=== PATIENT | male | born 1995 | race Caucasian/White ===

== ENCOUNTER 2017-12-11 18:56 | Emergency (ER) | payer BC, OTHER ==
--- NOTE | 2017-12-11 19:09 | EDM.PDOC ---
ED HPI GENERAL MEDICAL PROBLEM - General Stated Complaint: PT HAS FEVER Time Seen by Provider: 12/11/17 19:07 Source of Information: Reports: Patient History Limitations: Reports: No Limitations - History of Present Illness INITIAL COMMENTS - FREE TEXT/NARRATIVE: HISTORY AND PHYSICAL: []22-year-old male presents per EMS from [facility] History of Present Illness: []Patient was in the hospital for 2 days fever and leg pain. When Tylenol was stopped this morning he continued to have a fever 104 Review of Systems: As per history of present illness and below otherwise all systems reviewed and negative. Past medical history: As per history of present illness and as reviewed below otherwise noncontributory. Surgical history: As per history of present illness and as reviewed below otherwise noncontributory. Social history: No reported history of drug or alcohol abuse. Family history: As per history of present illness and as reviewed below otherwise noncontributory. Physical exam: HEENT: Atraumatic, normocehpalic, pupils reactive, negative for conjunctival pallor or scleral icterus, mucous membranes moist, throat clear, neck supple, nontender, trachea midline. Lungs: Clear to auscultation, breath sounds equal bilaterally, chest non tender. Heart: S1S2, regular, negative for clicks, rubs, or JVD. Abdomen: Soft, nondistended, nontender. Negative for masses or hepatossplenmegaly. Negative for costovertebral tenderness. Pelvis: Stable nontender. Genitourinary: Deferred. Rectal: Deferred Extremities: Atraumatic, negative for cords or calf pain. Neurovascular unremarkable. Neuro: Awake, alert, oriented. Cranial nerves II through XII unremarkable. Cerebellum unremarkable. Motor and sensory unremarkable throughout. Exam nonfocal. Diagnostics: []CBC CMP CPK chest x-ray rapid strep Therapeutics: [] IV fluid Impression: []History of rhabdomyolysis History of fever Plan: []Resolved in our emergency room Discharge to home Follow up with his primary care provider Turned to the emergency room as directed and discussed Definitive disposition and diagnosis as appropriate pending reevaluation and review of above. Onset: Gradual Duration: Day(s): (3), Getting Worse Location: Reports: Generalized head Pain Score (Numeric/FACES): 5 - Related Data Allergies Allergy/AdvReac Type Severity Reaction Status Date / Time No Known Allergies Allergy Verified 12/11/17 19:17 Home Meds: Home Meds . [No Known Home Meds] 12/11/17 [History] ED ROS GENERAL - Review of Systems Review Of Systems: ROS reveals no pertinent complaints other than HPI. ED EXAM, GENERAL - Physical Exam Exam: See Below (see dictation) Course - Vital Signs Last Recorded V/S: Last Vital Signs Temp 37.7 C 12/11/17 20:38 Pulse 81 12/11/17 20:38 Resp 20 12/11/17 20:38 BP 133/70 12/11/17 20:38 Pulse Ox 97 12/11/17 20:38 - Orders/Labs/Meds Orders: Active Orders 24 hr Category Date Time Status Chest 2V [CR] Stat Exams 12/11/17 19:06 Taken CULTURE BLOOD [BC] Stat Lab 12/11/17 19:24 Received CULTURE BLOOD [BC] Stat Lab 12/11/17 19:30 Received CULTURE STREP A CONFIRMATION [RM] Stat Lab 12/11/17 20:05 Results STREP SCRN A RAPID W CULT CONF [RM] Stat Lab 12/11/17 20:05 Ordered UA W/MICROSCOPIC [URIN] Stat Lab 12/11/17 19:10 Ordered Sodium Chloride 0.9% [Normal Saline] 1,000 ml Med 12/11/17 20:25 Active IV STAT Blood Culture x2 Reflex Set [OM.PC] Stat Oth 12/11/17 19:06 Ordered Medication Orders Sodium Chloride (Normal Saline) 1,000 mls @ 999 mls/hr IV STAT ONE Stop: 12/11/17 21:25 Last Admin: 12/11/17 20:29 Dose: 999 mls/hr Labs: Laboratory Tests 12/11/17 12/11/17 12/11/17 Range/Units 19:10 19:24 19:24 WBC 7.56 (4.0-11.0) K/uL RBC 4.15 L (4.50-5.90) M/uL Hgb 12.7 L (13.0-17.0) g/dL Hct 34.6 L (38.0-50.0) % MCV 83.4 (80.0-98.0) fL MCH 30.6 (27.0-32.0) pg MCHC 36.7 (31.0-37.0) g/dL RDW Std Deviation 35.4 (28.0-62.0) fl RDW Coeff of Isidoro 12 (11.0-15.0) % Plt Count 216 (150-400) K/uL MPV 9.50 (7.40-12.00) fL Neut % (Auto) 57.3 (48.0-80.0) % Lymph % (Auto) 29.4 (16.0-40.0) % Barry % (Auto) 11.0 (0.0-15.0) % Eos % (Auto) 1.9 (0.0-7.0) % Baso % (Auto) 0.4 (0.0-1.5) % Neut # (Auto) 4.3 (1.4-5.7) K/uL Lymph # (Auto) 2.2 (0.6-2.4) K/uL Barry # (Auto) 0.8 (0.0-0.8) K/uL Eos # (Auto) 0.1 (0.0-0.7) K/uL Baso # (Auto) 0.0 (0.0-0.1) K/uL Nucleated RBC % 0.0 /100WBC Nucleated RBCs # 0 K/uL Sodium 141 (136-148) mmol/L Potassium 3.4 L (3.5-5.1) mmol/L Chloride 109 H (98-107) mmol/L Carbon Dioxide 22.7 (21.0-32.0) mmol/L BUN 11 (7.0-18.0) mg/dL Creatinine 1.0 (0.8-1.3) mg/dL Est Cr Clr Drug Dosing 125.02 mL/min Estimated GFR (MDRD) > 60.0 ml/min Glucose 142 H (74-106) mg/dL Calcium 8.3 L (8.5-10.1) mg/dL Total Bilirubin 0.5 (0.2-1.0) mg/dL AST 12 L (15-37) IU/L ALT 19 (14-63) IU/L Alkaline Phosphatase 64 (46-116) U/L Ammonia (19-54) ug/dL Creatine Kinase (26-308) U/L Total Protein 5.9 L (6.4-8.2) g/dL Albumin 3.2 L (3.4-5.0) g/dL Globulin 2.7 (2.0-3.5) g/dL Albumin/Globulin Ratio 1.2 L (1.3-2.8) Lipase 116 (73-393) U/L TSH 3rd Generation 0.78 (0.36-3.74) uIU/mL Urine Color YELLOW Urine Appearance CLEAR Urine pH 6.0 (5.0-8.0) Ur Specific [place] <= 1.005 (1.001-1.035) Urine Protein NEGATIVE (NEGATIVE) mg/dL Urine Glucose (UA) NEGATIVE (NEGATIVE) mg/dL Urine Ketones NEGATIVE (NEGATIVE) mg/dL Urine Occult Blood NEGATIVE (NEGATIVE) Urine Nitrite NEGATIVE (NEGATIVE) Urine Bilirubin NEGATIVE (NEGATIVE) Urine Urobilinogen 0.2 (<2.0) EU/dL Ur Leukocyte Esterase NEGATIVE (NEGATIVE) Urine RBC 0-1 (0-2/HPF) Urine WBC 0-1 (0-5/HPF) Ur Epithelial Cells RARE (NONE-FEW) Urine Bacteria RARE (NEGATIVE) 12/11/17 12/11/17 Range/Units 19:24 19:30 WBC (4.0-11.0) K/uL RBC (4.50-5.90) M/uL Hgb (13.0-17.0) g/dL Hct (38.0-50.0) % MCV (80.0-98.0) fL MCH (27.0-32.0) pg MCHC (31.0-37.0) g/dL RDW Std Deviation (28.0-62.0) fl RDW Coeff of Isidoro (11.0-15.0) % Plt Count (150-400) K/uL MPV (7.40-12.00) fL Neut % (Auto) (48.0-80.0) % Lymph % (Auto) (16.0-40.0) % Barry % (Auto) (0.0-15.0) % Eos % (Auto) (0.0-7.0) % Baso % (Auto) (0.0-1.5) % Neut # (Auto) (1.4-5.7) K/uL Lymph # (Auto) (0.6-2.4) K/uL Barry # (Auto) (0.0-0.8) K/uL Eos # (Auto) (0.0-0.7) K/uL Baso # (Auto) (0.0-0.1) K/uL Nucleated RBC % /100WBC Nucleated RBCs # K/uL Sodium (136-148) mmol/L Potassium (3.5-5.1) mmol/L Chloride (98-107) mmol/L Carbon Dioxide (21.0-32.0) mmol/L BUN (7.0-18.0) mg/dL Creatinine (0.8-1.3) mg/dL Est Cr Clr Drug Dosing mL/min Estimated GFR (MDRD) ml/min Glucose (74-106) mg/dL Calcium (8.5-10.1) mg/dL Total Bilirubin (0.2-1.0) mg/dL AST (15-37) IU/L ALT (14-63) IU/L Alkaline Phosphatase (46-116) U/L Ammonia 33 (19-54) ug/dL Creatine Kinase 70 (26-308) U/L Total Protein (6.4-8.2) g/dL Albumin (3.4-5.0) g/dL Globulin (2.0-3.5) g/dL Albumin/Globulin Ratio (1.3-2.8) Lipase (73-393) U/L TSH 3rd Generation (0.36-3.74) uIU/mL Urine Color Urine Appearance Urine pH (5.0-8.0) Ur Specific [place] (1.001-1.035) Urine Protein (NEGATIVE) mg/dL Urine Glucose (UA) (NEGATIVE) mg/dL Urine Ketones (NEGATIVE) mg/dL Urine Occult Blood (NEGATIVE) Urine Nitrite (NEGATIVE) Urine Bilirubin (NEGATIVE) Urine Urobilinogen (<2.0) EU/dL Ur Leukocyte Esterase (NEGATIVE) Urine RBC (0-2/HPF) Urine WBC (0-5/HPF) Ur Epithelial Cells (NONE-FEW) Urine Bacteria (NEGATIVE) Meds: Medications Generic Name Dose Route Start Last Admin Trade Name Freq PRN Reason Stop Dose Admin Sodium Chloride 1,000 mls @ 999 mls/hr 12/11/17 20:25 12/11/17 20:29 Normal Saline IV 12/11/17 21:25 999 mls/hr STAT ONE Administration Departure - Departure Time of Disposition: 21:18 Disposition: Home, Self-Care 01 Condition: Good Clinical Impression: Fever Qualifiers: Fever type: unspecified Qualified Code(s): R50.9 - Fever, unspecified - Discharge Information Referrals: PCP,None [Primary Care Provider] - Additional Instructions: The following information is given to patients seen in the emergency department who are being discharged to home. This information is to outline your options for follow-up care. We provide all patients seen in our emergency department with a follow-up referral. The need for follow-up, as well as the timing and circumstances, are variable depending upon the specifics of your emergency department visit. If you don't have a primary care physician on staff, we will provide you with a referral. We always advise you to contact your personal physician following an emergency department visit to inform them of the circumstance of the visit and for follow-up with them and/or the need for any referrals to a consulting specialist. The emergency department will also refer you to a specialist when appropriate. This referral assures that you have the opportunity for followup care with a specialist. All of these measure are taken in an effort to provide you with optimal care, which includes your followup. Under all circumstances we always encourage you to contact your private physician who remains a resource for coordinating your care. When calling for followup care, please make the office aware that this follow-up is from your recent emergency room visit. If for any reason you are refused follow-up, please contact the [facility] emergency department at and asked to speak to the emergency department charge nurse. Your rhabdomyolysis has resolved His fever was resolved while here in the emergency room Follow-up with your primary care provider [facility] [address] [place] [address] [address] [phone] call tomorrow morning for an appointment in the next 2 days Return to the emergency room as discussed and directed - My Orders Last 24 Hours: My Active Orders 12/11/17 19:06 Chest 2V [CR] Stat Blood Culture x2 Reflex Set [OM.PC] Stat 12/11/17 19:10 UA W/MICROSCOPIC [URIN] Stat 12/11/17 19:24 CULTURE BLOOD [BC] Stat 12/11/17 19:30 CULTURE BLOOD [BC] Stat 12/11/17 20:05 CULTURE STREP A CONFIRMATION [RM] Stat STREP SCRN A RAPID W CULT CONF [RM] Stat 12/11/17 20:25 Sodium Chloride 0.9% [Normal Saline] 1,000 ml IV STAT - Assessment/Plan Last 24 Hours: My Active Orders 12/11/17 19:06 Chest 2V [CR] Stat Blood Culture x2 Reflex Set [OM.PC] Stat 12/11/17 19:10 UA W/MICROSCOPIC [URIN] Stat 12/11/17 19:24 CULTURE BLOOD [BC] Stat 12/11/17 19:30 CULTURE BLOOD [BC] Stat 12/11/17 20:05 CULTURE STREP A CONFIRMATION [RM] Stat STREP SCRN A RAPID W CULT CONF [RM] Stat 12/11/17 20:25 Sodium Chloride 0.9% [Normal Saline] 1,000 ml IV STAT
[2017-12-11 20:14] LABS: CHLORIDE,CL 109 mmol/L (98-107); SODIUM,NA 141 mmol/L (136-148)
[2017-12-11] MEDS ORDERED: Sodium Chloride 0.9% 1,000 ML IV ONE (20:25)
--- NOTE | 2017-12-12 16:46 | CR ---
EXAM DATE: 12/11/17 PATIENT'S AGE: 22 Patient: SARAH ORTIZ Facility: [place], [place] Site . Site : 1995 Study: XRay Chest [id number]/29/2018 7:49:20 PM Ordering Physician: Doctor Falk Final Report: INDICATION: pain/sob 2 View Chest. Findings: The lungs are clear. Pulmonary vascularity, mediastinum and cardiac silhouette are within normal limits. No effusions and no pneumothorax. Osseous structures appear unremarkable. Impression: No evidence of acute cardiopulmonary disease. Dictated by: Harrison Multani MD @ 12/11/2017 19:54:18 (Electronic Signature) Report Signed by Proxy. VASS[facility] BROTHERS MEDICAL CENTERJose
== END 2017-12-11 21:27 | disposition home or self-care (01) ==
LOC: MW.ED 18:56
DX: R50.9 Fever, unspecified (principal); Z87.39 Personal history of other diseases of the musculoskeletal system and connective tissue
CPT/HCPCS: 36415; 71046; 80053; 81001; 82140; 82550; 83690; 84443; 85025; 87040; 87081; 87880; 96360; 99284; J7040; 99283

== ENCOUNTER 2018-02-22 10:41 | Day surgery (SDC) | payer OTHER, BC ==
[~2018-02-22 10:41] MED LIST: Acetaminophen/HYDROcodone 325-5 MG Tab PO PRN; Bupivacaine 0.25%/EPINEPHrine 1:200,000 10 ML SDV INJECT ONE; Bupivacaine 25%/EPINEPHrine/PF 30 ML ONE; Dexamethasone 4 MG/ML 5 ML MDV ONE; Lactated Ringers 1,000 ML IV SCH; Midazolam 1 MG/ML 2 ML SDV ONE; Ondansetron 4 MG/2 ML SDV ONE; Propofol 200 MG/20 ML SDV ONE; ceFAZolin 2 GM in Premix Bag 1 BAG IV ONE; ceFAZolin/Dextrose,Iso-Osmotic 2 GM/50 ML Duplex Bag IV ONE; fentaNYL 250 MCG/5 ML SDV ONE
--- NOTE | 2018-02-22 11:52 | PCM.PREANE ---
Preanesthetic Assessment - Procedure Proposed Procedure: bilateral gynecomastia - Anesthesia/Transfusion/Family Hx Anesthesia History: Prior Anesthesia Without Reaction Family History of Anesthesia Reaction: No Transfusion History: No Prior Transfusion(s) Intubation History: Unknown Additional History: only anesthetic was for wisdom teeth extraction - Review of Systems General: Other (pain in breast area of chest) Pulmonary: No Symptoms Cardiovascular: No Symptoms Gastrointestinal: No Symptoms Neurological: No Symptoms Other: Reports: None - Physical Assessment NPO Status Date: 02/21/18 NPO Status Time: 22:00 Height: 6 ft Weight: 165 lb ASA Class: 1 Mental Status: Alert & Oriented x3 Airway Class: Mallampati = 1 Dentition: Reports: Normal Dentition Thyro-Mental Finger Breadths: 3 Mouth Opening Finger Breadths: 3 ROM/Head Extension: Full Lungs: Clear to Auscultation, Normal Respiratory Effort Cardiovascular: Regular Rate, Regular Rhythm, No Murmurs - Allergies Allergies/Adverse Reactions: Allergies Allergy/AdvReac Type Severity Reaction Status Date / Time No Known Allergies Allergy Verified 02/21/18 16:58 - Blood Blood Available: No Product(s) Available: None - Anesthesia Plan Pre-Op Medication Ordered: None - Acknowledgements Anesthesia Type Planned: General Anesthesia (LMA; possible MAC (deep) with local by surgeon, not my recommendation) Pt an Appropriate Candidate for the Planned Anesthesia: Yes Alternatives and Risks of Anesthesia Discussed w Pt/Guardian: Yes Pt/Guardian Understands and Agrees with Anesthesia Plan: Yes PreAnesthesia Questionnaire - Past Health History Medical/Surgical History: Denies Medical/Surgical History HEENT History: Reports: Allergic Rhinitis Respiratory History: Reports: Asthma Other Respiratory History: hx of "athletic induced" asthma as a child Gastrointestinal History: Reports: GERD Musculoskeletal History: Reports: Fracture Other Musculoskeletal History: hx of fx right ankle - Infectious Disease History Infectious Disease History: Reports: Chicken Pox - Past Surgical History HEENT Surgical History: Reports: Oral Surgery Other HEENT Surgeries/Procedures: wisdom teeth - SUBSTANCE USE Smoking Status *Q: Former Smoker Tobacco Use Within Last Twelve Months: Cigarettes Recreational Drug Use History: No - HOME MEDS Home Medications: Home Meds Cetirizine [ZyrTEC] 10 mg PO DAILY PRN 02/21/18 [History] - CURRENT (IN HOUSE) MEDS Current Meds: Current Medications Hydrocodone Bitart/Acetaminophen ([place] 325-5 Mg) 1 tab PO Q4H PRN PRN Reason: Pain Lactated Ringer's (Ringers, Lactated) 1,000 mls @ 125 mls/hr IV ASDIRECTED JOSE Discontinued Medications Bupivacaine HCl/Epinephrine Bitart (Marcaine 0.25%/Epinephrine 1:200,000) 10 ml INJECT ONETIME ONE Stop: 02/22/18 08:01 Cefazolin Sodium/Dextrose (Ancef) Confirm Administered Dose 2 gm IV .STK-MED ONE Stop: 02/22/18 07:35 Dexamethasone (Dexamethasone) Confirm Administered Dose 20 mg .ROUTE .STK-MED ONE Stop: 02/22/18 07:27 Fentanyl (Sublimaze) Confirm Administered Dose 250 mcg .ROUTE .STK-MED ONE Stop: 02/22/18 07:25 Cefazolin Sodium/Dextrose 2 gm (/ Premix) 50 mls @ 100 mls/hr IV ONETIME ONE Stop: 02/22/18 08:29 Bupivacaine HCl/Epinephrine Bitart (Sensorc Mpf 0.25%-Epi 1:730053) Confirm Administered Dose 30 mls @ as directed .ROUTE .STK-MED ONE Stop: 02/22/18 07:44 Midazolam HCl (Versed 1 Mg/Ml) Confirm Administered Dose 2 mg .ROUTE .STK-MED ONE Stop: 02/22/18 07:25 Ondansetron HCl (Zofran) Confirm Administered Dose 4 mg .ROUTE .STK-MED ONE Stop: 02/22/18 07:27 Propofol (Diprivan 20 Ml) Confirm Administered Dose 200 mg .ROUTE .STK-MED ONE Stop: 02/22/18 07:25
[2018-02-22] MEDS ORDERED: fentaNYL 100 MCG/2 ML SDV IVPUSH PRN (12:19)
[2018-02-22] MEDS ORDERED: ePHEDrine 50 MG/ML SDV ONE (12:39)
[2018-02-22] MEDS ORDERED: Sodium Chloride 0.9% 20 ML ONE (12:40)
[2018-02-22] MEDS ORDERED: Glycopyrrolate 0.2 MG/ML SDV ONE (12:44)
--- NOTE | 2018-02-22 13:49 | PCM.POSTAN ---
POST ANESTHESIA ASSESSMENT - MENTAL STATUS Mental Status: Alert, Oriented - RESPIRATORY Respiratory Status: Respiratory Rate WNL, Airway Patent, O2 Saturation Stable - CARDIOVASCULAR CV Status: Pulse Rate WNL, Blood Pressure Stable - GASTROINTESTINAL GI Status: No Symptoms - PAIN Pain Score: 2 - POST OP HYDRATION Hydration Status: Adequate & Stable
--- NOTE | 2018-02-23 09:36 | PCM.OPNOTE ---
- General Post-Op/Procedure Note Date of Surgery/Procedure: 02/22/18 Operative Procedure(s): excision of bilateral gynecomastia - painful Pre Op Diagnosis: bilateral asymmetric painful gynecomastia Post-Op Diagnosis: Same Anesthesia Technique: General LMA, Local Primary Surgeon: Nory House Facilities Operations Technician: Tracy Martin Complications: None Condition: Good
--- NOTE | 2018-02-28 06:19 | OR ---
SURGEON: MAK GARCIA MD DATE OF PROCEDURE: 02/23/2018 PREOPERATIVE DIAGNOSIS: Bilateral painful gynecomastia. POSTOPERATIVE DIAGNOSIS: Bilateral painful gynecomastia. PROCEDURE: Excision of bilateral gynecomastia. LICENSED GUIDE: JED Ceja. INDICATIONS: Mr. Spivey is a 22-year-old gentleman with significant painful bilateral asymmetric gynecomastia, worse on the left than on the right. Risks and benefits of removal of this tissue was discussed with him and he was in agreement to proceed. Risks were including, but not limited to, bleeding, infection, damage to underlying or overlying structures, possible need for future interventions, and possible scarring. The patient's gynecomastia has been stable and has not changed significantly for several years. Insurance and authorization were obtained. PROCEDURE IN DETAIL: After informed consent was obtained and placed on the chart, the patient was brought to the operating theater and laid in supine position. After adequate general anesthesia was obtained, the area was prepped and draped and a time-out was completed to confirm side and site. After infiltration of local anesthesia, attention was then paid to a curvilinear incision around the nipple-areolar complex on the right and a curvilinear with an extension laterally to the left. Dissection was carried through the subcutaneous tissues taking care to maintain the subcutaneous tissues intact without distorting this to prevent indentation. Dissection was then carried circumferentially around the abnormal breast tissue itself that was previously marked. Once adequately removed, appropriate taper on the edges was appreciated and the skin was redraped for an appropriate contour. Once adequate contour was appreciated, the skin was then closed using deep 3-0 Monocryl stitches for the fascia, 3-0 Monocryl Stratafix for the dermis, and a running 4-0 Monocryl Stratafix for the skin. These were dressed with Steri-Strips. The symmetry procedure was completed on the opposite left side with additional extension inferiorly as compared to the right. Again once appropriately removed and contoured, attention was paid to closure with deep 3-0 Stratafix Monocryl stitches and a deep dermal Stratafix 3-0 Monocryl as well as a running 4-0 subcuticular for the skin. The patient tolerated this well. The wounds were dressed with Steri-Strips, fluffs, and he was placed in a compression garment. He was given additional garment for take home. All counts, needles were correct at the end of the case. The patient tolerated this well. FOLLOWUP INSTRUCTIONS: The patient will see us in 1 week, sooner if any problems, questions, or concerns. He was given a prescription for pain control. TERRY / MALATHI /[id number]
== END 2018-02-22 15:10 | disposition home or self-care (01) ==
LOC: MW.SDS 10:41
PROVIDERS: ATTEND Plastic Surgery
DX: N64.4 Mastodynia (principal); N62 Hypertrophy of breast; J45.909 Unspecified asthma, uncomplicated; K21.9 Gastro-esophageal reflux disease without esophagitis; Z87.891 Personal history of nicotine dependence
CPT/HCPCS: 19300; 88305; A9270; J0690; J1100; J2250; J2405; J3010; J7120; J2704; J3490

== ENCOUNTER 2019-04-16 10:16 | Emergency (ER) | payer BC ==
--- NOTE | 2019-04-16 10:39 | EDM.PDOC ---
ED HPI GENERAL MEDICAL PROBLEM - General Chief Complaint: Lower Extremity Injury/Pain Stated Complaint: ANKLE INJURY Time Seen by Provider: 04/16/19 10:19 Source of Information: Reports: Patient History Limitations: Reports: No Limitations - History of Present Illness INITIAL COMMENTS - FREE TEXT/NARRATIVE: HISTORY AND PHYSICAL: History of present illness: Patient is a 23-year-old male presents to the ED today with concern of right ankle injury that occurred an hour prior to arrival to the ED. Patient states he was walking and stepped into a hole with his right ankle and it twisted. Patient states he's had limited weight on the ankle since and came to the ED. Patient states he has prior leave broken the right ankle several years ago. Patient denies falling and hitting his head. Patient denies any other symptoms or concerns. Patient denies fever, chills, chest pain, shortness of breath, or cough. Denies headache, neck stiff ness, change in vision, syncope, or near syncope. Denies nausea, vomiting, abdominal pain, diarrhea, constipation, or dysuria. Has not noted any blood in urine or stool. Patient has been eating and drinking appropriately. Review of systems: As per history of present illness and below otherwise all systems reviewed and negative. Past medical history: As per history of present illness and as reviewed below otherwise noncontributory. Surgical history: As per history of present illness and as reviewed below otherwise noncontributory. Social history: See social history for further information Family history: As per history of present illness and as reviewed below otherwise noncontributory. Physical exam: General: Patient is alert, oriented, and in no acute distress. Patient sitting comfortably on exam table. HEENT: Atraumatic, normocephalic, pupils equal and reactive bilaterally, negative for conjunctival pallor or scleral icterus, mucous membranes moist, TMs normal bilaterally, throat clear, neck supple, nontender, trachea midline. No drooling or trismus noted. No meningeal signs. No hot potato voice noted. Lungs: Clear to auscultation, breath sounds equal bilaterally, chest nontender. Heart: S1S2, regular rate and rhythm without overt murmur Abdomen: Soft, nondistended, nontender. Negative for masses or hepatosplenomegaly. Negative for costovertebral tenderness. Pelvis: Stable nontender. Genitourinary: Deferred. Rectal: Deferred. Skin: Intact, warm, dry. No lesions or rashes noted. Extremities: Negative for cords or calf pain. Neurovascular unremarkable. No obvious deformity of the right ankle. Patient has full range of motion of the complete right extremity, however, pain with range of motion of the right ankle. Patient has mild pain with palpation of the lateral malleolus. Dorsalis pedis and posterior tibial pulses grossly intact of the right lower extremity with capillary refill less than 2 seconds. Neuro: Awake, alert, oriented. Cranial nerves II through XII unremarkable. Cerebellum unremarkable. Motor and sensory unremarkable throughout. Exam nonfocal. Notes: Discussed the importance for follow-up with primary care provider or orthopedic provider. Voices understanding and is agreeable to plan of care. Denies any further questions or concerns at this time. Diagnostics: Ankle x-ray Therapeutics: Cam boot and crutches Prescription: Diclofenac Impression: Right ankle injury Plan: 1. Rest, ice, elevate the affected extremity. You can apply ice 15 minutes on, 15 minutes off. 2. Tylenol as directed for pain management or discomfort. Take medication as prescribed. 3. Follow up with the Orthopedic provider or primary care as discussed. Return to the ED as needed and as discussed. Definitive disposition and diagnosis as appropriate pending reevaluation and review of above. R ankle Pain Score (Numeric/FACES): 5 - Related Data Allergies Allergy/AdvReac Type Severity Reaction Status Date / Time No Known Allergies Allergy Verified 04/16/19 10:27 Home Meds: Home Meds . [No Known Home Meds] 04/16/19 [History] Past Medical History - Past Health History Medical/Surgical History: Denies Medical/Surgical History HEENT History: Reports: Allergic Rhinitis Respiratory History: Reports: Asthma Other Respiratory History: hx of "athletic induced" asthma as a child Gastrointestinal History: Reports: GERD Musculoskeletal History: Reports: Fracture Other Musculoskeletal History: hx of fx right ankle - Infectious Disease History Infectious Disease History: Reports: Chicken Pox - Past Surgical History HEENT Surgical History: Reports: Oral Surgery Other HEENT Surgeries/Procedures: wisdom teeth Social & Family History - Tobacco Use Smoking Status *Q: Former Smoker Used Tobacco, but Quit: Yes Month/Year Tobacco Last Used: 2017 - Caffeine Use Caffeine Use: Reports: Coffee - Alcohol Use Days Per Week of Alcohol Use: 2 Number of Drinks Per Day: 2 Total Drinks Per Week: 4 - Recreational Drug Use Recreational Drug Use: Yes Drug Use in Last 12 Months: No Review of Systems - Review of Systems Review Of Systems: ROS reveals no pertinent complaints other than HPI. ED EXAM, GENERAL - Physical Exam Exam: See Below (see dictation) Course - Vital Signs Last Recorded V/S: Last Vital Signs Temp 36.7 C 04/16/19 10:25 Pulse 85 04/16/19 10:25 Resp 16 04/16/19 10:25 BP 128/89 04/16/19 10:25 Pulse Ox 98 04/16/19 10:25 - Orders/Labs/Meds Orders: Active Orders 24 hr Category Date Time Status DME for Discharge [COMM] Stat Oth 04/16/19 11:31 Ordered Departure - Departure Time of Disposition: 11:33 Disposition: Home, Self-Care 01 Clinical Impression: Right ankle injury Qualifiers: Encounter type: initial encounter Qualified Code(s): S99.911A - Unspecified injury of right ankle, initial encounter - Discharge Information Referrals: PCP,Unknown [Primary Care Provider] - Forms: ED Department Discharge Additional Instructions: The following information is given to patients seen in the emergency department who are being discharged to home. This information is to outline your options for follow-up care. We provide all patients seen in our emergency department with a follow-up referral. The need for follow-up, as well as the timing and circumstances, are variable depending upon the specifics of your emergency department visit. If you don't have a primary care physician on staff, we will provide you with a referral. We always advise you to contact your personal physician following an emergency department visit to inform them of the circumstance of the visit and for follow-up with them and/or the need for any referrals to a consulting specialist. The emergency department will also refer you to a specialist when appropriate. This referral assures that you have the opportunity for follow-up care with a specialist. All of these measure are taken in an effort to provide you with optimal care, which includes your follow-up. Under all circumstances we always encourage you to contact your private physician who remains a resource for coordinating your care. When calling for follow-up care, please make the office aware that this follow-up is from your recent emergency room visit. If for any reason you are refused follow-up, please contact the [facility] Emergency Department at and asked to speak to the emergency department charge nurse. [facility] [address] [place] [address] [facility] [address] [place] [address] [id number] [facility] Specialty Care - Orthopedic Clinic Professional Building [address] [facility] [place] [address] [address] Khan, Orthopedist [facility] [address] [place] [address] Dr Singh - Dr Terry - Dr Hyman [facility] [address] [place] [address] [facility] [address] [place] [address] 1. Rest, ice, elevate the affected extremity. You can apply ice 15 minutes on, 15 minutes off. 2. Tylenol as directed for pain management or discomfort. Take medication as prescribed. 3. Follow up with the Orthopedic provider or primary care as discussed. Return to the ED as needed and as discussed. - My Orders Last 24 Hours: My Active Orders 04/16/19 11:31 DME for Discharge [COMM] Stat - Assessment/Plan Last 24 Hours: My Active Orders 04/16/19 11:31 DME for Discharge [COMM] Stat
--- NOTE | 2019-04-16 11:29 | CR ---
INDICATION: Trauma. Pain. TECHNIQUE: Three views of the right ankle. FINDINGS: No acute fracture or dislocation. Soft tissue swelling right lateral malleolus. Well corticated os subfibulare. This is not a fracture. IMPRESSION: Soft tissue swelling. The right ankle is otherwise negative. Dictated by Alfred Alonso MD @ Apr 16 2019 11:29AM Signed by Dr. Alfred Alonso @ Apr 16 2019 11:29AM
== END 2019-04-16 11:55 | disposition home or self-care (01) ==
LOC: MW.ED 10:16
DX: S99.911A Unspecified injury of right ankle, initial encounter (principal); Z87.891 Personal history of nicotine dependence; X50.1XXA Overexertion from prolonged static or awkward postures, initial encounter
CPT/HCPCS: 73610-26-RT; 73610-RT; 99283; 99284-25